=== PATIENT | male | born 1945 | race Caucasian/White ===

== ENCOUNTER 2016-11-11 13:38 | Inpatient (IN) | payer OTHER ==
[~2016-11-11] VITALS: Ht 177.8 cm; Wt 88.9 kg
[~2016-11-11 13:38] MED LIST: ALUMSUS2 PO; ASPI81TA28 PO; CARV3.12 PO; LISI-461 PO; METF-384 PO; MULT-600 PO; VICKS INH; ZCR40 PO
[2016-11-11] MEDS ORDERED: SODIUM CHLORIDE 0.9% 1000ML 500 ML IV STA (14:22)
[2016-11-11] MEDS ORDERED: SODIUM CHLORIDE 0.9% 1000ML 1,000 ML IV STA (14:22)
[2016-11-11] MEDS ORDERED: OPTIRAY 320 IV PRN (14:30)
[2016-11-11] MEDS ORDERED: OMEG10007 PO (14:58)
[2016-11-11 15:28] LABS: BASO % 0.9 %; BASO ABS # 0.04 K/uL (0-0.2); COMPLETE YES; EOS % 0.4 %; HEMATOCRIT 48.9 % (42-52); IG% 0.2 %; LYMPH % 35.6 %; LYMPH ABS # 1.63 K/uL (1.2-3.4); MEAN CELL VOLUME 91.2 fL (80-100); MEAN CORPUSCULAR HEMOGLOBIN 29.5 pg (25-34); MEAN CORPUSCULAR HGB CONC 32.3 g/dl (32-36); MEAN PLATELET VOLUME 10.2 fL (7.4-10.4); MONO % 17.7 %; NEUT % 45.2 %; PLATELET COUNT 236 K/uL (130-400); RED BLOOD COUNT 5.36 M/uL (4.7-6.1); WHITE BLOOD COUNT 4.58 K/uL (4.8-10.8)
[2016-11-11] MEDS ORDERED: OMEP40CA41 PO (15:28)
[2016-11-11] MEDS ORDERED: VALS40TA2 PO (15:28)
[2016-11-11 15:46] LABS: BUN/CREATININE RATIO 18.3 (10-20); CALCIUM 9.1 mg/dl (8.5-10.1); CREATININE 1.1 mg/dl (0.60-1.40); POTASSIUM 4.6 mmol/L (3.5-5.1)
[2016-11-11 15:49] LABS: ALB/GLOB RATIO 1.1 (0.9-2)
--- NOTE | 2016-11-11 16:16 | DIAGNOSTIC IMAGING REPORT ---
ABDOMEN 2VIEW W/PA CHEST RTN CLINICAL HISTORY: EVAL UPPER ABD PAIN pain COMPARISON STUDY: A1 2016 FINDINGS: Negative chest. Lungs are clear. Mild nonobstructive ileus. Considerable degenerative change left and to lesser extent right hip. IMPRESSION: Mild nonobstructive ileus. Electronically signed by: Saeed Pal M.D. 11/11/2016 4:15 PM Dictated Date/Time: 11/11/2016 4:14 PM
--- NOTE | 2016-11-11 17:38 | DIAGNOSTIC IMAGING REPORT ---
ABDOMEN AND PELVIS CT WITH IV AND ORAL CONTRAST CT DOSE: 517.31 mGy.cm HISTORY: Pain. Nausea. EVAL UPPER ABD PAIN TECHNIQUE: Multiaxial CT images of the abdomen and pelvis were performed following the use of intravenous and oral contrast. COMPARISON STUDY: 12/30/2015 FINDINGS: Stable bibasilar pulmonary nodularity. Lung bases otherwise are clear. Liver spleen and pancreas are uniform. Prior cholecystectomy. Mild cortical scarring of the kidneys bilaterally. No evidence renal mass or hydronephrosis. Atherosclerotic change abdominal aorta with no evidence for aneurysm. Bowel pattern is nonobstructive. Bladder is midline. No significant pelvic or inguinal adenopathy. IMPRESSION: 1. No acute process of the abdomen or pelvis. 2. Prior cholecystectomy. 3. Stable basilar pulmonary nodularity. Electronically signed by: Saeed Pal M.D. 11/11/2016 5:37 PM Dictated Date/Time: 11/11/2016 5:31 PM
--- NOTE | 2016-11-11 18:49 | EMERGENCY ROOM VISIT NOTE ---
ED Visit Note First contact with patient: 13:59 Patient seen and examined at bedside in the emergency room. Case discussed with the physician research assistant member, all labs and imaging were reviewed. Patient well- appearing at bedside, verbalized understanding of all results and need for admission. I agree with evaluation and treatment at this time.
[2016-11-11] MEDS ORDERED: LACTATED RINGER'S 1000ML 1,000 ML IV SCH (19:15)
[2016-11-11] MEDS ORDERED: ONDANSETRON INJ 2 MG/ML 2 ML VIAL IV PRN (19:15)
[2016-11-11] MEDS ORDERED: ACETAMINOPHEN 325 MG TAB PO PRN (19:15)
[2016-11-11] MEDS ORDERED: ALUMINUM/MAGNESIUM/SIMETH (MAALOX MAX) 30 ML UDC PO PRN (19:15)
[2016-11-11 19:24] VITALS: O2SAT 98
[2016-11-11] MEDS ORDERED: GLUCOSE 10 TABS/TUBE PO PRN (19:45)
[2016-11-11] MEDS ORDERED: GLUCOSE 40% GEL 15 GM TUBE PO PRN (19:45)
[2016-11-11] MEDS ORDERED: GLUCAGON FOR INJ 1 MG VIAL SQ PRN (19:45)
[2016-11-11] MEDS ORDERED: DEXTROSE 50% 50 ML SYR IV PRN (19:45)
[2016-11-11 20:15] VITALS: BP 142/83; PULSE 61; TEMP 36.8; O2SAT 95; BMI 28.1
--- NOTE | 2016-11-11 20:20 | HISTORY & PHYSICAL EXAMINATION ---
DATE OF ADMISSION: 11/11/2016 CHIEF COMPLAINT: Abdominal pain. HISTORY OF PRESENT ILLNESS: A 71-year-old male with past medical history significant for type 2 diabetes, hyperlipidemia, GERD, generalized osteoarthritis, diverticulosis of colon, chronic tobacco abuse, hypertension, proteinuria, who presents with severe abdominal pain. The patient says he has ongoing abdominal pain for about a year on and off. Whenever he eats he gets severe abdominal pain, and is nauseous. In April of 2016, seen by a surgeon, and was thought secondary to gallbladder disease, as he had gallstones and he was status post laparoscopic cholecystectomy.But Patient says he still has been experiencing significant abdominal pain. He lost about 10-15 pounds and recently saw his surgeon and was planned to get CAT scan, but his pain got worse and he came to the ER. Currently, he says the pain has improved. Currently, no nausea, no fever, no chills, no chest pain, no shortness of breath, has some cough. No headaches, no blurred vision, no dizziness, has diarrhea of 1-day duration, but seems comfortable now, hemodynamically stable. ALLERGIES: No known drug allergies. PAST MEDICAL HISTORY: As mentioned above. PAST SURGICAL HISTORY: Left heart catheterization, laparoscopic cholecystectomy, Mohs surgery, tonsillar adenoidectomy. MEDICATIONS: The patient is on metformin 1000 mg p.o. b.i.d., lisinopril 10 mg p.o. daily, omeprazole 40 mg p.o. daily, simvastatin 40 mg p.o. at bedtime, Maalox 15 mL every 6 hours p.r.n., Senokot-S 2 tablets p.r.n. for constipation, aspirin 81 mg p.o. b.i.d., Coreg 3.125 mg p.o. b.i.d., multivitamins with minerals 1 tablet daily, fish oil 200 mg p.o. daily, Diovan 40 mg p.o. daily. FAMILY HISTORY: Significant for father has diabetes, asthma, and pacemaker. His mother has renal failure and diabetes, at age of 74. Brother has asthma, degenerative joint disease. Another brother has mental illnesses and failure to thrive. Another brother has CHF. SOCIAL HISTORY: . Currently smokes to about 1.5-2 packs a day for several years. No alcohol use. No drug use. REVIEW OF SYMPTOMS: As per HPI. Rest of review of symptoms negative. PHYSICAL EXAMINATION: GENERAL: The patient is of moderate build, not in distress. VITAL SIGNS: Temperature 36.5, pulse 69, respiratory rate 16, blood pressure 137/73, oxygen 97% on room air. HEENT: No pallor, no icterus. Pupils are equal, round to light. NECK: No JVD, no neck masses, no carotid bruits. CARDIOVASCULAR: S1, S2 heard, regular rate and rhythm, no murmur, no gallop. RESPIRATORY SYSTEM: Clear to auscultation bilaterally. No accessory muscle use. No wheezing, no crackles. ABDOMEN: Soft, bowel sounds present. Mild periumbilical tenderness, no guarding, or rigidity. No distention. CENTRAL NERVOUS SYSTEM: Cranial nerves II-XII are grossly intact. Nonfocal. EXTREMITIES: No edema, no erythema. LABORATORY DATA: WBC 4.5, hemoglobin 15.8, hematocrit 48.9, platelets 236. Sodium 139, potassium 4.6, chloride 107, bicarb is 26, BUN 20, creatinine 1.1, serum glucose 93, total calcium 9.1, total bilirubin 1.2, AST 16, ALT 26, alkaline phosphatase 78, lipase 2100. IMAGING DATA: Chest x-ray, negative chest. CT scan of the abdomen and pelvis, no acute process of the abdomen and pelvis, prior cholecystectomy, stable bibasilar pulmonary nodularity. ASSESSMENT AND PLAN: This is a 71-year-old male who presents with acute on chronic abdominal pain. 1. Acute on chronic abdominal pain. Possible pancreatitis, history of cholecystectomy in April 2016, but lipase is elevated at 2000, but the CAT scan of the pelvis with contrast, no acute process seen. We will place the patient n.p.o., aggressive IV fluids settling at LR 200 mL an hour, IV antiemetics, IV pain medications. Monitor on medical floor. Consult gastroenterology and consult surgery as patient is known to surgery. 2. History of diabetes. Hold metformin. We will place him on insulin sliding scale. Follow Hb A1c levels. 3. History of hypertension. Continue Coreg and Diovan. Monitor the blood pressure. 4. History of hyperlipidemia. Plan to hold statin for now. 5. Gastrointestinal reflux disease. We will place him on IV Protonix for now. 6. DVT prophylaxis, SCDs and THOMPSON. 7. History of tobacco abuse. We will place him on nicotine patch. 8. Disposition: Admit to medical floor. Level 1 full code. MTDNkechi
[2016-11-11] MEDS ORDERED: PNEUMOCOCCAL POLYSACCHARIDES 25 MCG/0.5 ML VIAL/SYR IM. ONE (20:45)
[2016-11-11] MEDS ORDERED: PNEUMOCOCCAL ADMINISTRATION CHARGE ONE (20:45)
[2016-11-11] MEDS: CARVEDILOL 3.125 MG TAB PO SCH (21:00)
[2016-11-11] MEDS: INSULIN ASPART 100 UNITS/ML 3 ML PEN SC SCH ×3 (21:19→21:27)
[2016-11-11] MEDS: MoRPHine SULFATE 4 MG/ML 1 ML CARP\\VIAL IV PRN (21:23)
[2016-11-11 21:29] VITALS: BP 106/66; PULSE 58
--- NOTE | 2016-11-11 22:25 | EMERGENCY ROOM VISIT NOTE ---
History First contact with patient: 13:59 Chief Complaint: ABDOMINAL PAIN Stated Complaint: ABD. PAIN-GALL BLADDER REMOVED FEBMar 2016 Nursing Triage Summary: pt reports pain in RUQ states gallbladder was removed 6 months ago feels like same pain History of Present Illness Patient is a 71 year old white male with past medical history significant for hypertension, dyslipidemia, diabetes, GERD, and 6 months status post lap Cholecystectomy who presents emergency department for evaluation of upper abdominal pain 4 months. Patient had an uncomplicated laparoscopic cholecystectomy performed at our facility by Dr. Harley in April 2016 for symptomatic cholelithiasis. Patient reports that postoperatively his symptoms improved. Several months ago however he began to note some intermittent right upper quadrant pain. He describes it as feeling like a "gas bubble." He states the pain radiates across the upper abdomen to the left upper quadrant. Initially the pain was tolerable, however in the last couple of weeks it has become worse. He states that it is more constant. He feels bloated and distended and notes increased flatus. He denies any nausea or vomiting. The pain is worse after eating, although he denies any specific food triggers. He denies any indigestion, reflux symptoms or regurgitation. He has been constipated as well. He has used multiple medications including MiraLAX and Maalox and was placed on Carafate which she has been on for 1-2 months. He is not presently on a PPI. Last night, he was driving back from [place], and he noted increased pain, fatigue, and actually had diarrhea. He denies any melena, or hematochezia. The patient was seen by his surgeon, Dr. Harley last week on the . He had laboratory studies performed which were unremarkable per the patient. A CT scan was scheduled but could not be arranged until the . The patient reports a history of an EGD and a colonoscopy in the past which were negative. He denies any pain in his chest, cough, wheezing or shortness of breath. He does have some intermittent palpitations, which have been evaluated and are reportedly benign. He did have a cardiac catheterization last fall while experiencing his biliary colic symptoms, and was cleared from a cardiology standpoint. He denies a calf or leg pain or swelling. He smokes 2 packs of cigarettes per day. He drinks excessive caffeinated beverages. Denies alcohol use. Review of Systems Review of systems as per HPI. All other systems reviewed were negative. 10 systems reviewed. Past Medical/Surgical History Medical Problems: (1) Cholelithiasis (2) Chronic pancreatitis (3) Diabetes (4) Essential (Primary) Hypertension (5) Gastro-Esophageal Reflux Disease Without Esophagitis (6) High cholesterol (7) Lung nodule (8) Pancreatitis (9) Skin cancer (10) Type 2 Diabetes Mellitus Without Complications Surgical Problems: (1) History of colonoscopy (2) History of esophagogastroduodenoscopy (3) Hx laparoscopic cholecystectomy (4) Status post excisional biopsy Electronic medical records are reviewed and summarized as above/below. See Problem List. Social History Smoking Status: Current Every Day Smoker Alcohol Use: none Marital Status: Housing Status: lives with significant other Occupation Status: employed Current/Historical Medications Scheduled Aluminum/Magnesium/Simeth (Maalox Max Susp), 1 DOSE PO PRN Aspirin (Aspirin Ec), 81 MG PO BID Carvedilol (Coreg), 3.125 MG PO BID Fish Oil ([place]-3), 1 CAP PO DAILY Metformin Hcl (Glucophage), 1,000 MG PO BID Multiple Vitamins W/ Minerals (Mens Multi Vitamin & Mine), 2 TAB PO QPM Omeprazole (Prilosec), 40 MG PO DAILY Simvastatin (Simvastatin), 40 MG PO QPM Valsartan (Diovan), 40 MG PO DAILY [Vicks Inhaler], 1 DOSE INH PRN Allergies Coded Allergies: No Known Allergies (Unverified , 11/11/16) Physical Exam Vital Signs Date Time Temp Pulse Resp B/P (MAP) Pulse Ox O2 Delivery O2 Flow Rate FiO2 11/11/16 17:37 69 16 137/73 97 Room Air 11/11/16 15:34 60 18 117/64 94 Room Air 11/11/16 13:44 36.5 81 18 116/73 96 Room Air Physical Exam CONSTITUTIONAL: Patient is a 71-year-old white male who is awake and alert and in no acute distress. Vital signs are stable. EYES: Pupils equal, round, reactive to light and accommodation. EOMs intact without nystagmus. Sclera are anicteric. ENT: Tympanic membranes intact, with normal landmarks. External canals are clear. Oral and nasopharynx are clear. Mucous membranes are moist, no lesions , tongue and gums appear normal. NECK: No bruits auscultated. Supple without lymphadenopathy. No thyromegaly. No meningeal signs. Full active range of motion without discomfort. CARDIOVASCULAR: Regular rate and rhythm, with normal S1 and S2, no murmur or gallop or rub is heard. No carotid bruits auscultated. No JVD. Peripheral pulses easy to palpable. RESPIRATORY: Breath sounds equal and clear to auscultation without wheezes, rales, or rhonchi heard. Full and equal chest expansion without accessory muscle use or retractions. GI: Bowel sounds are present. Abdomen is soft, nondistended, slightly tender in the right upper quadrant and epigastric region. No organomegaly. No pulsatile masses. No guarding or rebound. MUSCULOSKELETAL: Full range of motion of extremities x 4 with good strength. No cyanosis, edema, joint tenderness or swelling. No deformity. INTEGUMENTARY: No lesions or rash, normal skin turgor. NEUROLOGICAL: Alert, oriented, and cooperative. Cranial nerves, sensation and strength grossly intact. Pupils round, equal, and react to light, EOMs are full. LYMPH: No lymphadenopathy. Medical Decision & Procedures ER Provider Diagnostic Interpretation: ABDOMEN 2VIEW W/PA CHEST RTN CLINICAL HISTORY: EVAL UPPER ABD PAIN pain COMPARISON STUDY: A1 2015 FINDINGS: Negative chest. Lungs are clear. Mild nonobstructive ileus. Considerable degenerative change left and to lesser extent right hip. IMPRESSION: Mild nonobstructive ileus. ABDOMEN AND PELVIS CT WITH IV AND ORAL CONTRAST CT DOSE: 517.31 mGy.cm HISTORY: Pain. Nausea. EVAL UPPER ABD PAIN TECHNIQUE: Multiaxial CT images of the abdomen and pelvis were performed following the use of intravenous and oral contrast. COMPARISON STUDY: 12/30/2015 FINDINGS: Stable bibasilar pulmonary nodularity. Lung bases otherwise are clear. Liver spleen and pancreas are uniform. Prior cholecystectomy. Mild cortical scarring of the kidneys bilaterally. No evidence renal mass or hydronephrosis. Atherosclerotic change abdominal aorta with no evidence for aneurysm. Bowel pattern is nonobstructive. Bladder is midline. No significant pelvic or inguinal adenopathy. IMPRESSION: 1. No acute process of the abdomen or pelvis. 2. Prior cholecystectomy. 3. Stable basilar pulmonary nodularity. Laboratory Results 11/11/16 15:15 Red Blood Count 5.36, Mean Corpuscular Volume 91.2, Mean Corpuscular Hemoglobin 29.5, Mean Corpuscular Hemoglobin Concent 32.3, Mean Platelet Volume 10.2, Neutrophils (%) (Auto) 45.2, Lymphocytes (%) (Auto) 35.6, Monocytes (%) (Auto) 17.7, Eosinophils (%) (Auto) 0.4, Basophils (%) (Auto) 0.9, Neutrophils # (Auto ) 2.07, Lymphocytes # (Auto) 1.63, Monocytes # (Auto) 0.81, Eosinophils # (Auto ) 0.02, Basophils # (Auto) 0.04 11/11/16 15:15 Test 11/11/16 15:15 White Blood Count 4.58 K/uL (4.8-10.8) Red Blood Count 5.36 M/uL (4.7-6.1) Hemoglobin 15.8 g/dL (14.0-18.0) Hematocrit 48.9 % (42-52) Mean Corpuscular Volume 91.2 fL (80-100) Mean Corpuscular Hemoglobin 29.5 pg (25-34) Mean Corpuscular Hemoglobin Concent 32.3 g/dl (32-36) Platelet Count 236 K/uL (130-400) Mean Platelet Volume 10.2 fL (7.4-10.4) Neutrophils (%) (Auto) 45.2 % Lymphocytes (%) (Auto) 35.6 % Monocytes (%) (Auto) 17.7 % Eosinophils (%) (Auto) 0.4 % Basophils (%) (Auto) 0.9 % Neutrophils # (Auto) 2.07 K/uL (1.4-6.5) Lymphocytes # (Auto) 1.63 K/uL (1.2-3.4) Monocytes # (Auto) 0.81 K/uL (0.11-0.59) Eosinophils # (Auto) 0.02 K/uL (0-0.5) Basophils # (Auto) 0.04 K/uL (0-0.2) RDW Standard Deviation 52.6 fL (36.4-46.3) RDW Coefficient of Variation 15.7 % (11.5-14.5) Immature Granulocyte % (Auto) 0.2 % Immature Granulocyte # (Auto) 0.01 K/uL (0.00-0.02) Anion Gap 6.0 mmol/L (3-11) Est Creatinine Clear Calc Drug Dose 70.1 ml/min Estimated GFR () 78.4 Estimated GFR (Non- 67.7 BUN/Creatinine Ratio 18.3 (10-20) Calcium Level 9.1 mg/dl (8.5-10.1) Total Bilirubin 1.2 mg/dl (0.2-1) Aspartate Amino Transf (AST/SGOT) 16 U/L (15-37) Alanine Aminotransferase (ALT/SGPT) 26 U/L (12-78) Alkaline Phosphatase 78 U/L (45-117) Total Protein 7.8 gm/dl (6.4-8.2) Albumin 4.0 gm/dl (3.4-5.0) Globulin 3.8 gm/dl (2.5-4.0) Albumin/Globulin Ratio 1.1 (0.9-2) Lipase 2101 U/L (73-393) Medications Administered Medications (Trade) Dose Ordered Sig/Nadia Route Start Time Stop Time Status Last Admin Dose Admin Sodium Chloride 500 ml @ 999 mls/hr Q31M STAT IV 11/11/16 14:22 11/11/16 14:52 DC 11/11/16 14:22 999 MLS/HR Sodium Chloride 1,000 ml @ 200 mls/hr Q5H STAT IV 11/11/16 14:22 11/11/16 19:21 DC 11/11/16 14:22 200 MLS/HR Lactated Ringer's 1,000 ml @ 200 mls/hr Q5H IV 11/11/16 19:15 12/11/16 19:14 11/11/16 21:19 200 MLS/HR Morphine Sulfate (MoRPHine SULFATE INJ) 3 mg Q3HWA PRN IV 11/11/16 19:15 11/25/16 19:14 11/11/16 21:23 3 MG ED Course The patient was seen and evaluated as above. Old records were reviewed. IV lock was initiated and laboratory studies were collected. And lipase were drawn. Patient was hydrated with normal saline solution. He declined analgesia while in the emergency department. Acute abdominal series was obtained. CT scan of the abdomen and pelvis with IV and oral contrast was ordered. Laboratory studies noted a white count of 4500, H&H 15 and 48, electrolytes without significant abnormality. Renal function is normal. Total bilirubin 1.2 , otherwise remainder of liver functions are within normal limits. Lipase is elevated at 2100. Urine dip noted trace protein and positive nitrates, no other indicators for infection. Acute abdominal series noted a mild, nonobstructive ileus. Abdominal CT did not note any acute process in the abdomen or the pelvis. Prior changes consistent with cholecystectomy were noted. Stable pulmonary nodule. All laboratory and diagnostic imaging studies were reviewed with attending physician. He presents to the emergency department with a several month history of upper abdominal pain, status post cholecystectomy. His abdominal exam is benign at this time, however he does have elevation of his lipase indicative of pancreatitis. Review of old records do show that his lipase had been up at only around 900 at the time of his cholecystectomy. Differential diagnoses entertained included GERD, gastritis, esophagitis, peptic ulcer disease, GI bleed, pancreatitis, choledocholithiasis, ascending cholangitis, bowel obstruction, perforation, mass or malignancy, among others. The patient was reviewed with the [facility] service for further care and management. Please refer to admission H&P for further information. Medication reconciliation: I attest that I have personally reviewed the patient' s current medication list. Blood pressure screening : Patient was found to have normal blood pressure on screening and does not require follow-up. Medical Decision See Emergency Department course. Impression Primary Impression: Pancreatitis Departure Information Dispostion Being Evaluated By Hospitalist Referrals Eddie Ray D.O. (PCP) Patient Instructions [facility]
[2016-11-11 23:14] VITALS: BP 101/57; PULSE 75; TEMP 36.7; O2SAT 91
[2016-11-12] MEDS: D5W AND LACTATED RINGERS 1,000 ML IV SCH ×5 (00:55→20:08)
[2016-11-12] MEDS: INSULIN ASPART 100 UNITS/ML 3 ML PEN SC SCH ×4 (05:51→18:29)
[2016-11-12 07:44] LABS: BASO % 0.9 %; BASO ABS # 0.03 K/uL (0-0.2); COMPLETE YES; EOS % 0.6 %; HEMATOCRIT 45.5 % (42-52); IG% 0.3 %; LYMPH % 38.1 %; LYMPH ABS # 1.21 K/uL (1.2-3.4); MEAN CELL VOLUME 92.1 fL (80-100); MEAN CORPUSCULAR HEMOGLOBIN 29.4 pg (25-34); MEAN CORPUSCULAR HGB CONC 31.9 g/dl (32-36); MEAN PLATELET VOLUME 10.3 fL (7.4-10.4); MONO % 19.5 %; NEUT % 40.6 %; PLATELET COUNT 217 K/uL (130-400); RED BLOOD COUNT 4.94 M/uL (4.7-6.1); WHITE BLOOD COUNT 3.18 K/uL (4.8-10.8)
[2016-11-12 07:49] VITALS: BP 132/79; PULSE 63; TEMP 36.7; O2SAT 93
[2016-11-12] MEDS: MoRPHine SULFATE 4 MG/ML 1 ML CARP\\VIAL IV PRN ×2 (07:53→15:07)
[2016-11-12 08:21] LABS: BUN/CREATININE RATIO 14.8 (10-20); CREATININE 0.95 mg/dl (0.60-1.40)
[2016-11-12 08:25] LABS: CALCIUM 8.4 mg/dl (8.5-10.1)
[2016-11-12 08:34] LABS: ESTIMATED AVERAGE GLUCOSE 123 mg/dl; HA1C FLAG Normal (Normal)
--- NOTE | 2016-11-12 08:59 | Medical Consult ---
Consultation Date of Consultation: Nov 12, 2016. Attending Physician: Anne-Marie Brunson M.D. History of Present Illness 71 y/o male 6 months s/p lap abhilash admitted for abdominal pain. He saw Dr. Harley last week and CT was scheduled. He had increased pain yesterday and came to the ED and was subsequently admitted for pancreatitis. Pain (across upper abdomen) is improved this AM. He had seen GI preop but not since surgery. Pathology was cholelithiasis, chronic cholecystitis. IOC was not obtained. Past Medical/Surgical History Medical Problems: (1) Cholelithiasis (2) Chronic pancreatitis (3) Diabetes (4) Essential (Primary) Hypertension (5) Gastro-Esophageal Reflux Disease Without Esophagitis (6) High cholesterol (7) Lung nodule (8) Pancreatitis (9) Skin cancer (10) Type 2 Diabetes Mellitus Without Complications Surgical Problems: (1) History of colonoscopy (2) History of esophagogastroduodenoscopy (3) Hx laparoscopic cholecystectomy (4) Status post excisional biopsy Social History Smoking Status: Current Every Day Smoker Marital Status: Housing Status: lives with significant other Occupation Status: employed Allergies Coded Allergies: No Known Allergies (Unverified , 11/11/16) Current Inpatient Medications Current Inpatient Medications Medications (Trade) Dose Ordered Sig/Nadia Route Start Time Stop Time Status Last Admin Dose Admin Ioversol (Optiray 320) 125 ml UD PRN IV 11/11/16 14:30 11/15/16 14:29 Acetaminophen (Tylenol Tab) 650 mg Q4H PRN PO 11/11/16 19:15 12/11/16 19:14 Al Hydrox/Mg Hydrox/Simethicone (Maalox Max Susp) 15 ml Q4H PRN PO 11/11/16 19:15 12/11/16 19:14 Ondansetron HCl (Zofran Inj) 4 mg Q6H PRN IV 11/11/16 19:15 12/11/16 19:14 Pantoprazole Sodium 40 mg/ Syringe 10 ml @ 5 mls/min DAILY@11 IV 11/12/16 11:00 12/12/16 10:59 Morphine Sulfate (MoRPHine SULFATE INJ) 3 mg Q3HWA PRN IV 11/11/16 19:15 11/25/16 19:14 11/12/16 07:53 3 MG Carvedilol (Coreg Tab) 3.125 mg BID PO 11/11/16 21:00 12/11/16 20:59 Valsartan (Diovan Tab) 40 mg DAILY PO 11/12/16 09:00 12/12/16 08:59 Insulin Aspart (novoLOG ASPART) SLIDING SCALE G... Q6 SC 11/11/16 00:00 12/11/16 00:00 Nicotine (Nicoderm Cq 21MG Patch) 1 patch QAM TD 11/12/16 09:00 12/12/16 08:59 Miscellaneous (Remove Nicoderm Patch) 1 ea HS N/A 11/11/16 21:00 12/11/16 20:59 11/11/16 21:00 1 EA Glucose (Glucose 40% Gel) 15-30 GRAMS 15 GRAMS... UD PRN PO 11/11/16 19:45 12/11/16 19:44 Glucose (Glucose Chew Tab) 4-8 Tablets 4 Tabl... UD PRN PO 11/11/16 19:45 12/11/16 19:44 Dextrose (Dextrose 50% 50ML Syringe) 25-50ML OF 50% DW IV FOR... UD PRN IV 11/11/16 19:45 12/11/16 19:44 Glucagon (Glucagon Inj) 1 mg UD PRN SQ 11/11/16 19:45 12/11/16 19:44 Dextrose/Lactated Ringer's 1,000 ml @ 200 mls/hr Q5H IV 11/12/16 00:30 12/12/16 00:29 11/12/16 05:50 200 MLS/HR Review of Systems Abdomen: + pain (after meals), No vomiting Physical Exam Date Time Temp Pulse Resp B/P (MAP) Pulse Ox O2 Delivery O2 Flow Rate FiO2 11/12/16 07:49 36.7 63 16 132/79 (96) 93 Room Air 11/12/16 07:40 Room Air 11/12/16 00:14 Room Air 11/11/16 23:14 36.7 75 14 101/57 (72) 91 Room Air 11/11/16 21:29 58 106/66 (79) 11/11/16 20:15 36.8 61 16 142/83 Room Air 11/11/16 20:15 36.8 61 16 142/83 (102) 95 Room Air 11/11/16 19:24 58 18 129/75 98 Room Air 11/11/16 17:37 69 16 137/73 97 Room Air 11/11/16 15:34 60 18 117/64 94 Room Air 11/11/16 13:44 36.5 81 18 116/73 96 Room Air General Appearance: no apparent distress ENT: normal ENT inspection Abdomen/GI: non tender, soft Laboratory Results Last 24 Hours Test 11/11/16 15:15 11/12/16 00:02 11/12/16 05:49 11/12/16 07:28 White Blood Count 4.58 K/uL 3.18 K/uL Red Blood Count 5.36 M/uL 4.94 M/uL Hemoglobin 15.8 g/dL 14.5 g/dL Hematocrit 48.9 % 45.5 % Mean Corpuscular Volume 91.2 fL 92.1 fL Mean Corpuscular Hemoglobin 29.5 pg 29.4 pg Mean Corpuscular Hemoglobin Concent 32.3 g/dl 31.9 g/dl Platelet Count 236 K/uL 217 K/uL Mean Platelet Volume 10.2 fL 10.3 fL Neutrophils (%) (Auto) 45.2 % 40.6 % Lymphocytes (%) (Auto) 35.6 % 38.1 % Monocytes (%) (Auto) 17.7 % 19.5 % Eosinophils (%) (Auto) 0.4 % 0.6 % Basophils (%) (Auto) 0.9 % 0.9 % Neutrophils # (Auto) 2.07 K/uL 1.29 K/uL Lymphocytes # (Auto) 1.63 K/uL 1.21 K/uL Monocytes # (Auto) 0.81 K/uL 0.62 K/uL Eosinophils # (Auto) 0.02 K/uL 0.02 K/uL Basophils # (Auto) 0.04 K/uL 0.03 K/uL RDW Standard Deviation 52.6 fL 52.8 fL RDW Coefficient of Variation 15.7 % 15.6 % Immature Granulocyte % (Auto) 0.2 % 0.3 % Immature Granulocyte # (Auto) 0.01 K/uL 0.01 K/uL Sodium Level 139 mmol/L 142 mmol/L Potassium Level 4.6 mmol/L 4.0 mmol/L Chloride Level 107 mmol/L 109 mmol/L Carbon Dioxide Level 26 mmol/L 27 mmol/L Anion Gap 6.0 mmol/L 6.0 mmol/L Blood Urea Nitrogen 20 mg/dl 14 mg/dl Creatinine 1.10 mg/dl 0.95 mg/dl Est Creatinine Clear Calc Drug Dose 70.1 ml/min 81.2 ml/min Estimated GFR () 78.4 93.6 Estimated GFR (Non- 67.7 80.8 BUN/Creatinine Ratio 18.3 14.8 Random Glucose 93 mg/dl 131 mg/dl Calcium Level 9.1 mg/dl 8.4 mg/dl Total Bilirubin 1.2 mg/dl 1.2 mg/dl Aspartate Amino Transf (AST/SGOT) 16 U/L 14 U/L Alanine Aminotransferase (ALT/SGPT) 26 U/L 21 U/L Alkaline Phosphatase 78 U/L 65 U/L Total Protein 7.8 gm/dl 6.6 gm/dl Albumin 4.0 gm/dl 3.3 gm/dl Globulin 3.8 gm/dl Albumin/Globulin Ratio 1.1 Lipase 2101 U/L Bedside Glucose 87 mg/dl 137 mg/dl Estimated Average Glucose 123 mg/dl Hemoglobin A1c 5.9 % Magnesium Level 2.0 mg/dl Direct Bilirubin 0.3 mg/dl ABDOMEN AND PELVIS CT WITH IV AND ORAL CONTRAST CT DOSE: 517.31 mGy.cm HISTORY: Pain. Nausea. EVAL UPPER ABD PAIN TECHNIQUE: Multiaxial CT images of the abdomen and pelvis were performed following the use of intravenous and oral contrast. COMPARISON STUDY: 12/30/2015 FINDINGS: Stable bibasilar pulmonary nodularity. Lung bases otherwise are clear. Liver spleen and pancreas are uniform. Prior cholecystectomy. Mild cortical scarring of the kidneys bilaterally. No evidence renal mass or hydronephrosis. Atherosclerotic change abdominal aorta with no evidence for aneurysm. Bowel pattern is nonobstructive. Bladder is midline. No significant pelvic or inguinal adenopathy. IMPRESSION: 1. No acute process of the abdomen or pelvis. 2. Prior cholecystectomy. 3. Stable basilar pulmonary nodularity. Electronically signed by: Saeed Pal M.D. 11/11/2016 5:37 PM Dictated Date/Time: 11/11/2016 5:31 PM Assessment & Plan pancreatitis Continue treatment for his acute pancreatitis. Will leave further evaluation (inpatient/outpatient) up to GI. Will inform Dr. Harley of admission, but no acute surgical issues at this time. Please contact us if his conditions changes. pt seen. as above. appears to be acute on chronic pancreatitis ct neg/no surgical indication at this time GI to eval via ercp/eus please call us if we can help in any way.
--- NOTE | 2016-11-12 09:04 | Gastrointestinal Consultation ---
Gastrointestinal Consultation Date of Consultation: Nov 12, 2016 Attending Physician: Dr. Brunson Consulting Physician: Dr. Azam Pinto Reason for Consultation: ? pancreatitis History of Present Illness Patient is a 71 year old male patient Eddie Ray with a hx of DM-2, HTN, GERD, diverticulosis who presented to the ED yesterday for upper post prandial pain. GI is consulted for question of pancreatitis. He began with upper abdomen pain after eating a few years ago. In April, he underwent lap choley by Dr. Harley with brief improvement in his pain. He describes his pain prior cholecystectomy was RUQ, after eating and "a dull throb." He felt well until about late April when this pain started which he describes as bilateral upper abdomen pain, equal on both side, beginning immediately after eating and lasting 2-3 hrs. Maalox improves the pain. He saw GI as well has his surgeon recently but he doesn't believe that he has undergone endoscopy or EUS. He does not get nausea, vomiting or diarrhea with the pain. On arrival, lipase was >2000, CT with IV and po contrast were normal. LFTs were normal (except bilirubin of 1.2). He is awake, alert, oriented and sitting up in the bed. He says his pain is better today compared to yesterday. He denies any hx of increased alcohol intake though he does drink a 6 pack of diet Mountain Dew every day. He smokes 1 1/2 ppd for 53 yrs. Past Medical/Surgical History Medical Problems: (1) Diabetes Status: Chronic (2) High cholesterol Status: Chronic (3) Lung nodule Status: Chronic Past Medical History: 1. HTN 2. GERD 3. Arthritis 4. Diverticulosis 5. Proteinuria Past Surgical History: 1. Lap cholecystectomy Feb 2016 2. MOEs surgery on nose, right shoulder 3. Heart Cath Social History Smoking Status: Current Every Day Smoker Alcohol Use: none Marital Status: Housing Status: lives with significant other Occupation Status: employed Allergies Coded Allergies: No Known Allergies (Unverified , 11/11/16) Current Medications Home Meds and Scripts Medications Dose Route/Sig Max Daily Dose Days Date Category Diovan (Valsartan) 40 Mg Tab 40 Mg PO DAILY 11/11/16 Reported Prilosec (Omeprazole) 40 Mg Cap 40 Mg PO DAILY 11/11/16 Reported Jeannette-3 (Fish Oil) 1 Ea Cap 1 Cap PO DAILY 11/11/16 Reported Maalox Max Susp (Al Hydrox/Mg Hydrox/Simethicone) Susp 1 Dose PO PRN 04/20/16 Reported [Vicks Inhaler] 1 Dose INH PRN 04/20/16 Reported Coreg (Carvedilol) 3.125 Mg Tab 3.125 Mg PO BID 04/20/16 Reported Aspirin Ec (Aspirin) 81 Mg Tab 81 Mg PO BID 04/20/16 Reported Mens Multi Vitamin & Mine (Multiple Vitamins W/ Minerals) 1 Tab Tab 2 Tab PO QPM 12/30/15 Reported Glucophage (Metformin Hcl) 1,000 Mg Tab 1,000 Mg PO BID 12/30/15 Reported Simvastatin 40 Mg Tab 40 Mg PO QPM 12/30/15 Reported Review of Systems Constitutional: No fever, No chills, No sweats, No weight loss, No weakness Eyes: No eye pain, No redness ENT: No sore throat, No trouble swallowing, No pain on swallowing Respiratory: No cough, No wheezing, No shortness of breath, No dyspnea on exertion Cardiac: No chest pain, No edema, No palpitations Abdomen: + see HPI Musculoskeletal: + joint pain (with arthritis) Neuro: No memory loss, No weakness, No numbness/tingling, No vertigo, No balance problems Psych: No depression symptoms, No anxiety, No insomnia Heme: No abnormal bleeding/bruising, No night sweats Endo: No excessive thirst, No excessive urination Skin: No rash, No itch, No new/changing skin lesions, No jaundice Physical Exam Date Time Temp Pulse Resp B/P (MAP) Pulse Ox O2 Delivery O2 Flow Rate FiO2 11/12/16 07:49 36.7 63 16 132/79 (96) 93 Room Air 11/12/16 07:40 Room Air 11/12/16 00:14 Room Air 11/11/16 23:14 36.7 75 14 101/57 (72) 91 Room Air 11/11/16 21:29 58 106/66 (79) 11/11/16 20:15 36.8 61 16 142/83 Room Air 11/11/16 20:15 36.8 61 16 142/83 (102) 95 Room Air 11/11/16 19:24 58 18 129/75 98 Room Air 11/11/16 17:37 69 16 137/73 97 Room Air 11/11/16 15:34 60 18 117/64 94 Room Air 11/11/16 13:44 36.5 81 18 116/73 96 Room Air General Appearance: no apparent distress Eyes: normal inspection, EOMI Neck: supple, no adenopathy, thyroid normal Respiratory/Chest: chest non-tender, no accessory muscle use, + wheezing (mild , throughout) Cardiovascular: regular rate, rhythm, no JVD, no murmur Abdomen: normal bowel sounds, no organomegaly, + tenderness (mild RUQ tenderness) Extremities: normal inspection, no pedal edema, normal capillary refill Neurologic/Psych: alert, normal mood/affect, oriented x 3 Skin: normal color, no jaundice, warm/dry, no rash Laboratory Results Last 24 Hours Test 11/11/16 15:15 11/12/16 00:02 11/12/16 05:49 11/12/16 07:28 White Blood Count 4.58 K/uL 3.18 K/uL Red Blood Count 5.36 M/uL 4.94 M/uL Hemoglobin 15.8 g/dL 14.5 g/dL Hematocrit 48.9 % 45.5 % Mean Corpuscular Volume 91.2 fL 92.1 fL Mean Corpuscular Hemoglobin 29.5 pg 29.4 pg Mean Corpuscular Hemoglobin Concent 32.3 g/dl 31.9 g/dl Platelet Count 236 K/uL 217 K/uL Mean Platelet Volume 10.2 fL 10.3 fL Neutrophils (%) (Auto) 45.2 % 40.6 % Lymphocytes (%) (Auto) 35.6 % 38.1 % Monocytes (%) (Auto) 17.7 % 19.5 % Eosinophils (%) (Auto) 0.4 % 0.6 % Basophils (%) (Auto) 0.9 % 0.9 % Neutrophils # (Auto) 2.07 K/uL 1.29 K/uL Lymphocytes # (Auto) 1.63 K/uL 1.21 K/uL Monocytes # (Auto) 0.81 K/uL 0.62 K/uL Eosinophils # (Auto) 0.02 K/uL 0.02 K/uL Basophils # (Auto) 0.04 K/uL 0.03 K/uL RDW Standard Deviation 52.6 fL 52.8 fL RDW Coefficient of Variation 15.7 % 15.6 % Immature Granulocyte % (Auto) 0.2 % 0.3 % Immature Granulocyte # (Auto) 0.01 K/uL 0.01 K/uL Sodium Level 139 mmol/L 142 mmol/L Potassium Level 4.6 mmol/L 4.0 mmol/L Chloride Level 107 mmol/L 109 mmol/L Carbon Dioxide Level 26 mmol/L 27 mmol/L Anion Gap 6.0 mmol/L 6.0 mmol/L Blood Urea Nitrogen 20 mg/dl 14 mg/dl Creatinine 1.10 mg/dl 0.95 mg/dl Est Creatinine Clear Calc Drug Dose 70.1 ml/min 81.2 ml/min Estimated GFR () 78.4 93.6 Estimated GFR (Non- 67.7 80.8 BUN/Creatinine Ratio 18.3 14.8 Random Glucose 93 mg/dl 131 mg/dl Calcium Level 9.1 mg/dl 8.4 mg/dl Total Bilirubin 1.2 mg/dl 1.2 mg/dl Aspartate Amino Transf (AST/SGOT) 16 U/L 14 U/L Alanine Aminotransferase (ALT/SGPT) 26 U/L 21 U/L Alkaline Phosphatase 78 U/L 65 U/L Total Protein 7.8 gm/dl 6.6 gm/dl Albumin 4.0 gm/dl 3.3 gm/dl Globulin 3.8 gm/dl Albumin/Globulin Ratio 1.1 Lipase 2101 U/L Bedside Glucose 87 mg/dl 137 mg/dl Estimated Average Glucose 123 mg/dl Hemoglobin A1c 5.9 % Magnesium Level 2.0 mg/dl Direct Bilirubin 0.3 mg/dl Impression Patient is a 71 year old male with acute on chronic post prandial upper abdomen pain in a band like distribution. His lipase is >[address] is normal. Symptoms are suggestive of a chronic, low grade pancreatitis or chronic abdominal vascular occlusion. Plan 1. Treat acute symptoms with IV fluids, clear liquids po. 2. MRCP. If CBD obstruction then will consider ERCP. 3. If ERCP negative then eventual EUS. 4. If EUS w/o evidence of pancreatitis then would consider CTA abd/pelvis. 6. Consider smoking cessation and decreased soda intake. I saw and evaluated the patient. He was admitted with recurrent abdominal pain and mild lipase elevation, 6 months post cholecytectomy. PE: nad, no icterus Impression: mild idiopathic pancreatitis, please obtain an MRCP to evaluate for retained CBD stones Plan MRCP continue with IV hydration
[2016-11-12] MEDS: VALSARTAN 80 MG TAB PO SCH (10:13)
[2016-11-12] MEDS: CARVEDILOL 3.125 MG TAB PO SCH ×2 (10:13→20:19)
[2016-11-12] MEDS: NICOTINE 21 MG/24 HR TDSY TD SCH (10:14)
[2016-11-12] MEDS: PANTOprazole INJ 40 MG in SYRINGE 0 ML IV SCH (10:14)
[2016-11-12 12:53] VITALS: Ht 177.8 cm; Wt 88.9 kg
--- NOTE | 2016-11-12 15:04 | DIAGNOSTIC IMAGING REPORT ---
MRCP CLINICAL HISTORY: EVAL FOR RETAINED GALLSTONES pain. Nausea. TECHNIQUE: Multiaxial MRI acquisition COMPARISON STUDY: CT abdomen and pelvis dated 11/11/2016 FINDINGS: Mild fatty infiltration of liver. Prior cholecystectomy. Several very small renal cysts. No evidence renal hydronephrosis. The adrenal glands are unremarkable. Pancreas is uniform throughout. Bowel pattern is nonobstructive. The MRCP comparison study shows no retained filling defects. IMPRESSION: Negative study status post cholecystectomy Electronically signed by: Saeed Pal M.D. 11/12/2016 3:03 PM Dictated Date/Time: 11/12/2016 2:58 PM
--- NOTE | 2016-11-12 15:09 | Progress Note ---
Internal Med Progress Note Date of Service: Nov 12, 2016. Provider Documentation: SUBJECTIVE: The patient was seen and examined Abdominal pain is much better today Denies any Nausea and or vomiting Pain gets worse with food OBJECTIVE: Vital Signs-as noted below Exam: General-No distress at rest Eyes-normal ENT-normal Neck-supple Lungs-Clear to auscultate bilaterally Heart-Regular,no murmur appreciated Abdomen-Benign,no masses,bowel sound present No tenderness in epigastrium Extremities-No Edema [id number] Lab data as noted below. ASSESSMENT & PLAN: ACUTE RECURRENT PANCREATITIS Acute on chronic abdominal pain-typical for Pancreatitis. Lipase elevated ~2000 CT-unremarkable IVF,NPO and symptomatic medications GI consulted-appreciate Input MRCP for further evaluation Clinically a little better Diabetes Type II Metformin may be complicating abdominal pain Hold metformin-and will discontinue on discharge We will place him on insulin sliding scale. Follow Hb A1c levels. History of hypertension. Continue Coreg and Diovan. Monitor the blood pressure. Hyperlipidemia. Plan to hold statin for now. Gastrointestinal reflux disease. We will place him on IV Protonix for now. DVT prophylaxis, SCDs and THOMPSON. History of tobacco abuse. We will place him on nicotine patch. Code Status-Full code Disposition: Awaited Vital Signs: Date Time Temp Pulse Resp B/P (MAP) Pulse Ox O2 Delivery O2 Flow Rate FiO2 11/12/16 07:49 36.7 63 16 132/79 (96) 93 Room Air 11/12/16 07:40 Room Air 11/12/16 00:14 Room Air 11/11/16 23:14 36.7 75 14 101/57 (72) 91 Room Air 11/11/16 21:29 58 106/66 (79) 11/11/16 20:15 36.8 61 16 142/83 Room Air 11/11/16 20:15 36.8 61 16 142/83 (102) 95 Room Air 11/11/16 19:24 58 18 129/75 98 Room Air 11/11/16 17:37 69 16 137/73 97 Room Air 11/11/16 15:34 60 18 117/64 94 Room Air Lab Results: Results Past 24 Hours Test 11/11/16 15:15 11/12/16 00:02 11/12/16 05:49 11/12/16 07:28 Range/Units White Blood Count 4.58 3.18 4.8-10.8 K/uL Red Blood Count 5.36 4.94 4.7-6.1 M/uL Hemoglobin 15.8 14.5 14.0-18.0 g/dL Hematocrit 48.9 45.5 42-52 % Mean Corpuscular Volume 91.2 92.1 80-100 fL Mean Corpuscular Hemoglobin 29.5 29.4 25-34 pg Mean Corpuscular Hemoglobin Concent 32.3 31.9 32-36 g/dl Platelet Count 236 217 130-400 K/uL Mean Platelet Volume 10.2 10.3 7.4-10.4 fL Neutrophils (%) (Auto) 45.2 40.6 % Lymphocytes (%) (Auto) 35.6 38.1 % Monocytes (%) (Auto) 17.7 19.5 % Eosinophils (%) (Auto) 0.4 0.6 % Basophils (%) (Auto) 0.9 0.9 % Neutrophils # (Auto) 2.07 1.29 1.4-6.5 K/uL Lymphocytes # (Auto) 1.63 1.21 1.2-3.4 K/uL Monocytes # (Auto) 0.81 0.62 0.11-0.59 K/uL Eosinophils # (Auto) 0.02 0.02 0-0.5 K/uL Basophils # (Auto) 0.04 0.03 0-0.2 K/uL RDW Standard Deviation 52.6 52.8 36.4-46.3 fL RDW Coefficient of Variation 15.7 15.6 11.5-14.5 % Immature Granulocyte % (Auto) 0.2 0.3 % Immature Granulocyte # (Auto) 0.01 0.01 0.00-0.02 K/uL Sodium Level 139 142 136-145 mmol/L Potassium Level 4.6 4.0 3.5-5.1 mmol/L Chloride Level 107 109 98-107 mmol/L Carbon Dioxide Level 26 27 21-32 mmol/L Anion Gap 6.0 6.0 3-11 mmol/L Blood Urea Nitrogen 20 14 7-18 mg/dl Creatinine 1.10 0.95 0.60-1.40 mg/dl Est Creatinine Clear Calc Drug Dose 70.1 81.2 ml/min Estimated GFR () 78.4 93.6 Estimated GFR (Non- 67.7 80.8 BUN/Creatinine Ratio 18.3 14.8 10-20 Random Glucose 93 131 70-99 mg/dl Calcium Level 9.1 8.4 8.5-10.1 mg/dl Total Bilirubin 1.2 1.2 0.2-1 mg/dl Aspartate Amino Transf (AST/SGOT) 16 14 15-37 U/L Alanine Aminotransferase (ALT/SGPT) 26 21 12-78 U/L Alkaline Phosphatase 78 65 45-117 U/L Total Protein 7.8 6.6 6.4-8.2 gm/dl Albumin 4.0 3.3 3.4-5.0 gm/dl Globulin 3.8 2.5-4.0 gm/dl Albumin/Globulin Ratio 1.1 0.9-2 Lipase 2101 278 73-393 U/L Bedside Glucose 87 137 70-99 mg/dl Estimated Average Glucose 123 mg/dl Hemoglobin A1c 5.9 4.5-5.6 % Magnesium Level 2.0 1.8-2.4 mg/dl Direct Bilirubin 0.3 0-0.2 mg/dl Hepatitis C Antibody Screen NEG NEG
[2016-11-12 15:28] VITALS: BP 135/78; PULSE 61; TEMP 36.3; O2SAT 97
[2016-11-12 20:18] VITALS: BP 156/75; PULSE 61
[2016-11-12] MEDS ORDERED: NURSING VERBAL MED ORDER ONE (23:00)
[2016-11-12 23:05] VITALS: BP 126/76; PULSE 59; TEMP 36.4; O2SAT 96
[2016-11-13] MEDS: D5W AND LACTATED RINGERS 1,000 ML IV SCH ×4 (01:10→16:38)
[2016-11-13 07:10] VITALS: BP 150/79; PULSE 54; TEMP 36.4; O2SAT 96
[2016-11-13 07:26] LABS: BASO % 1.4 %; BASO ABS # 0.04 K/uL (0-0.2); COMPLETE YES; HEMATOCRIT 43.2 % (42-52); LYMPH % 38.4 %; LYMPH ABS # 1.11 K/uL (1.2-3.4); MEAN CELL VOLUME 91.7 fL (80-100); MEAN CORPUSCULAR HEMOGLOBIN 30.1 pg (25-34); MEAN CORPUSCULAR HGB CONC 32.9 g/dl (32-36); MEAN PLATELET VOLUME 10.9 fL (7.4-10.4); MONO % 20.1 %; NEUT % 39.1 %; PLATELET COUNT 220 K/uL (130-400); RED BLOOD COUNT 4.71 M/uL (4.7-6.1); WHITE BLOOD COUNT 2.89 K/uL (4.8-10.8)
[2016-11-13 08:10] LABS: BUN/CREATININE RATIO 9.6 (10-20); CALCIUM 8.6 mg/dl (8.5-10.1); CREATININE 0.81 mg/dl (0.60-1.40); MAGNESIUM 1.8 mg/dl (1.8-2.4); POTASSIUM 3.8 mmol/L (3.5-5.1)
[2016-11-13] MEDS: INSULIN ASPART 100 UNITS/ML 3 ML PEN SC SCH ×2 (08:59→11:06)
[2016-11-13] MEDS: CARVEDILOL 3.125 MG TAB PO SCH (09:00)
[2016-11-13] MEDS: VALSARTAN 80 MG TAB PO SCH (09:00)
[2016-11-13] MEDS: NICOTINE 21 MG/24 HR TDSY TD SCH (09:00)
[2016-11-13] MEDS: PANTOprazole INJ 40 MG in SYRINGE 0 ML IV SCH (10:57)
--- NOTE | 2016-11-13 12:23 | Gastroenterology Progress Note ---
Progress Note Date of Service: Nov 13, 2016 Subjective Pt evaluation today including: conversation w/ patient, physical exam, chart review, lab review, review of studies, review of inpatient medication list Mr. Craig is a 71 yr old male with acute pancreatitis, likely mild chronic from smoking. Pain is nearly resolved. He is taking clear liqs po well w/o nausea or increased discomfort. Review of Systems Constitutional: No fever Cardiac: No chest pain Abdomen: + pain (minimal), No nausea, No vomiting, No diarrhea, No constipation , No GI bleeding Male : No dysuria Neuro: No memory loss Psych: No depression symptoms Heme: No abnormal bleeding/bruising Endo: No fatigue Skin: No rash, No jaundice Medications Current Inpatient Medications Medications (Trade) Dose Ordered Sig/Nadia Route Start Time Stop Time Status Last Admin Dose Admin Ioversol (Optiray 320) 125 ml UD PRN IV 11/11/16 14:30 11/15/16 14:29 Acetaminophen (Tylenol Tab) 650 mg Q4H PRN PO 11/11/16 19:15 12/11/16 19:14 Al Hydrox/Mg Hydrox/Simethicone (Maalox Max Susp) 15 ml Q4H PRN PO 11/11/16 19:15 12/11/16 19:14 Ondansetron HCl (Zofran Inj) 4 mg Q6H PRN IV 11/11/16 19:15 12/11/16 19:14 Pantoprazole Sodium 40 mg/ Syringe 10 ml @ 5 mls/min DAILY@11 IV 11/12/16 11:00 12/12/16 10:59 11/13/16 10:57 5 MLS/MIN Morphine Sulfate (MoRPHine SULFATE INJ) 3 mg Q3HWA PRN IV 11/11/16 19:15 11/25/16 19:14 11/12/16 15:07 3 MG Carvedilol (Coreg Tab) 3.125 mg BID PO 11/11/16 21:00 12/11/16 20:59 11/12/16 20:19 3.125 MG Valsartan (Diovan Tab) 40 mg DAILY PO 11/12/16 09:00 12/12/16 08:59 11/13/16 09:00 40 MG Nicotine (Nicoderm Cq 21MG Patch) 1 patch QAM TD 11/12/16 09:00 12/12/16 08:59 11/13/16 09:00 1 PATCH Miscellaneous (Remove Nicoderm Patch) 1 ea HS N/A 11/11/16 21:00 12/11/16 20:59 11/12/16 20:20 1 EA Glucose (Glucose 40% Gel) 15-30 GRAMS 15 GRAMS... UD PRN PO 11/11/16 19:45 12/11/16 19:44 11/12/16 22:02 15 GM Glucose (Glucose Chew Tab) 4-8 Tablets 4 Tabl... UD PRN PO 11/11/16 19:45 12/11/16 19:44 Dextrose (Dextrose 50% 50ML Syringe) 25-50ML OF 50% DW IV FOR... UD PRN IV 11/11/16 19:45 12/11/16 19:44 Glucagon (Glucagon Inj) 1 mg UD PRN SQ 11/11/16 19:45 12/11/16 19:44 Dextrose/Lactated Ringer's 1,000 ml @ 200 mls/hr Q5H IV 11/12/16 00:30 12/12/16 00:29 11/13/16 10:57 200 MLS/HR Insulin Aspart (novoLOG ASPART) SLIDING SCALE G... ACHS SC 11/13/16 08:00 12/13/16 07:59 Objective Vital Signs Date Time Temp Pulse Resp B/P (MAP) Pulse Ox O2 Delivery O2 Flow Rate FiO2 11/13/16 08:25 Room Air 11/13/16 07:10 36.4 54 17 150/79 (102) 96 Room Air 11/12/16 23:15 Room Air 11/12/16 23:05 36.4 59 16 126/76 (93) 96 Room Air 11/12/16 20:18 61 156/75 (102) 11/12/16 15:28 36.3 61 18 135/78 (97) 97 Room Air 11/12/16 15:20 Room Air Physical Exam General Appearance: no apparent distress Neck: no JVD Respiratory/Chest: lungs clear Cardiovascular: regular rate, rhythm, no JVD, no murmur Abdomen: soft, + tenderness (minimal epigastric) Extremities: normal inspection Neurologic/Psych: alert, normal mood/affect, oriented x 3 Skin: no jaundice Laboratory Results Last 24 Hours Test 11/12/16 18:06 11/12/16 21:50 11/12/16 23:10 11/13/16 06:27 Bedside Glucose 181 mg/dl 68 mg/dl 176 mg/dl White Blood Count 2.89 K/uL Red Blood Count 4.71 M/uL Hemoglobin 14.2 g/dL Hematocrit 43.2 % Mean Corpuscular Volume 91.7 fL Mean Corpuscular Hemoglobin 30.1 pg Mean Corpuscular Hemoglobin Concent 32.9 g/dl Platelet Count 220 K/uL Mean Platelet Volume 10.9 fL Neutrophils (%) (Auto) 39.1 % Lymphocytes (%) (Auto) 38.4 % Monocytes (%) (Auto) 20.1 % Eosinophils (%) (Auto) 1.0 % Basophils (%) (Auto) 1.4 % Neutrophils # (Auto) 1.13 K/uL Lymphocytes # (Auto) 1.11 K/uL Monocytes # (Auto) 0.58 K/uL Eosinophils # (Auto) 0.03 K/uL Basophils # (Auto) 0.04 K/uL RDW Standard Deviation 51.9 fL RDW Coefficient of Variation 15.4 % Immature Granulocyte % (Auto) 0.0 % Immature Granulocyte # (Auto) 0.00 K/uL Sodium Level 146 mmol/L Potassium Level 3.8 mmol/L Chloride Level 114 mmol/L Carbon Dioxide Level 25 mmol/L Anion Gap 7.0 mmol/L Blood Urea Nitrogen 8 mg/dl Creatinine 0.81 mg/dl Est Creatinine Clear Calc Drug Dose 95.3 ml/min Estimated GFR () 104.4 Estimated GFR (Non- 90.0 BUN/Creatinine Ratio 9.6 Random Glucose 133 mg/dl Calcium Level 8.6 mg/dl Magnesium Level 1.8 mg/dl Test 11/13/16 07:54 Bedside Glucose 127 mg/dl Assessment and Plan Mr. Craig is a 71 yr old with acute pancreatitis, resolving. He likely has a component of chronic pancreatitis from a long hx of smoking. Plan: 1. Advance diet, stay with low fat. 2. EUS as OP in 6-8 weeks. I saw and evaluated the patient. The patient notes that his symptoms have resolved completely. He will be scheduled for an outpatient endoscopic ultrasound in 6-8 weeks. Please advance the patient's diet as tolerated and call with any questions. GI to sign off.
--- NOTE | 2016-11-13 13:03 | Progress Note ---
Internal Med Progress Note Date of Service: Nov 13, 2016. Provider Documentation: SUBJECTIVE: The patient was seen and examined Abdominal pain is much better today Denies any Nausea and or vomiting Denies any more pain Tolerating clears-will advance OBJECTIVE: Vital Signs-as noted below Exam: General-No distress at rest Eyes-normal ENT-normal Neck-supple Lungs-Clear to auscultate bilaterally Heart-Regular,no murmur appreciated Abdomen-Benign,no masses,bowel sound present No tenderness in epigastrium Extremities-No Edema [id number] Lab data as noted below. ASSESSMENT & PLAN: ACUTE RECURRENT PANCREATITIS Acute on chronic abdominal pain-typical for Pancreatitis. Lipase elevated ~2000 CT-unremarkable IVF,NPO and symptomatic medications GI consulted-appreciate Input MRCP for further evaluation-negative for any dilatation of the CBD/stone Clinically much better Advance diet as tolerated -home this afternoon Diabetes Type II Metformin may be complicating abdominal pain Hold metformin-and will discontinue on discharge We will place him on insulin sliding scale. Follow Hb A1c levels.-5.9 Has had Hypoglycemia early this morning-ISS discontinued History of hypertension. Continue Coreg and Diovan. Monitor the blood pressure. Hyperlipidemia. Plan to hold statin for now. Gastrointestinal reflux disease. We will place him on IV Protonix for now. DVT prophylaxis, SCDs and THOMPSON. History of tobacco abuse. We will place him on nicotine patch. Code Status-Full code Disposition: Awaited Vital Signs: Date Time Temp Pulse Resp B/P (MAP) Pulse Ox O2 Delivery O2 Flow Rate FiO2 11/13/16 08:25 Room Air 11/13/16 07:10 36.4 54 17 150/79 (102) 96 Room Air 11/12/16 23:15 Room Air 11/12/16 23:05 36.4 59 16 126/76 (93) 96 Room Air 11/12/16 20:18 61 156/75 (102) 11/12/16 15:28 36.3 61 18 135/78 (97) 97 Room Air 11/12/16 15:20 Room Air Lab Results: Results Past 24 Hours Test 11/12/16 18:06 11/12/16 21:50 11/12/16 23:10 11/13/16 06:27 Range/Units Bedside Glucose 181 68 176 70-99 mg/dl White Blood Count 2.89 4.8-10.8 K/uL Red Blood Count 4.71 4.7-6.1 M/uL Hemoglobin 14.2 14.0-18.0 g/dL Hematocrit 43.2 42-52 % Mean Corpuscular Volume 91.7 80-100 fL Mean Corpuscular Hemoglobin 30.1 25-34 pg Mean Corpuscular Hemoglobin Concent 32.9 32-36 g/dl Platelet Count 220 130-400 K/uL Mean Platelet Volume 10.9 7.4-10.4 fL Neutrophils (%) (Auto) 39.1 % Lymphocytes (%) (Auto) 38.4 % Monocytes (%) (Auto) 20.1 % Eosinophils (%) (Auto) 1.0 % Basophils (%) (Auto) 1.4 % Neutrophils # (Auto) 1.13 1.4-6.5 K/uL Lymphocytes # (Auto) 1.11 1.2-3.4 K/uL Monocytes # (Auto) 0.58 0.11-0.59 K/uL Eosinophils # (Auto) 0.03 0-0.5 K/uL Basophils # (Auto) 0.04 0-0.2 K/uL RDW Standard Deviation 51.9 36.4-46.3 fL RDW Coefficient of Variation 15.4 11.5-14.5 % Immature Granulocyte % (Auto) 0.0 % Immature Granulocyte # (Auto) 0.00 0.00-0.02 K/uL Sodium Level 146 136-145 mmol/L Potassium Level 3.8 3.5-5.1 mmol/L Chloride Level 114 98-107 mmol/L Carbon Dioxide Level 25 21-32 mmol/L Anion Gap 7.0 3-11 mmol/L Blood Urea Nitrogen 8 7-18 mg/dl Creatinine 0.81 0.60-1.40 mg/dl Est Creatinine Clear Calc Drug Dose 95.3 ml/min Estimated GFR () 104.4 Estimated GFR (Non- 90.0 BUN/Creatinine Ratio 9.6 10-20 Random Glucose 133 70-99 mg/dl Calcium Level 8.6 8.5-10.1 mg/dl Magnesium Level 1.8 1.8-2.4 mg/dl Test 11/13/16 07:54 11/13/16 11:48 Range/Units Bedside Glucose 127 122 70-99 mg/dl
[2016-11-13 14:17] VITALS: BP 150/79; PULSE 54; TEMP 36.4; O2SAT 96
[2016-11-13 15:15] VITALS: BP 145/65; PULSE 56; TEMP 36.8; O2SAT 96
[2016-11-13] MEDS ORDERED: NICO21DI4 TD (17:08)
--- NOTE | 2016-11-13 17:12 | Discharge Instructions ---
Discharge Instructions Date of Service Nov 13, 2016. Admission Reason for Admission: Pancreatitis Discharge Discharge Diagnosis / Problem: Acute Pancreatitis-resolved Discharge Goals Goal(s): Prevent Disease Progression Activity Recommendations Activity Limitations: resume your previous activity . Instructions / Follow-Up Instructions / Follow-Up Dr Ray on 11/20/16 at 9:25AM.Will need to start oral Antidiabetic medication - Metformin stopped.GI will call for Endoscopy. Current Hospital Diet Patient's current hospital diet: Diabetes Type 2 Diet Discharge Diet Recommended Diet: Diabetes Type 2 Diet, Low Fiber Diet Pending Studies Studies pending at discharge: no Laboratory Results Hemoglobin A1c Test 11/12/16 07:28 Range/Units Estimated Average Glucose 123 mg/dl Hemoglobin A1c 5.9 H 4.5-5.6 % Medical Emergencies . Who to Call and When: Medical Emergencies: If at any time you feel your situation is an emergency, please call 911 immediately. . Non-Emergent Contact Non-Emergency issues call your: Primary Care Provider . Past History Medical & Surgical History: (1) Pancreatitis (2) Chronic pancreatitis . "Provider Documentation" section prepared by Anne-Marie Brunson. . VTE Core Measure Inpt VTE Proph given/why not?: SCD's
--- NOTE | 2016-11-14 08:23 | Discharge Summary ---
Discharge Summary Date of Service Nov 14, 2016. Discharge Summary Admission Date: Nov 11, 2016 at 19:15 Discharge Date: Nov 13, 2016 Discharge Disposition: Home Principal Diagnosis: Acute Pancreatitis-resolved Secondary Diagnoses/Problems: Please see H&P and Hospital Progress note Consultations: GI Medication Reconciliation New Medications: Nicotine (Nicoderm Cq) 21 Mg/24 Hr Dis 1 PATCH TD QAM for 30 Days, #30 Continued Medications: Aluminum/Magnesium/Simeth (Maalox Max Susp) Susp 1 DOSE PO PRN Aspirin (Aspirin Ec) 81 Mg Tab 81 MG PO BID Carvedilol (Coreg) 3.125 Mg Tab 3.125 MG PO BID, TAB Fish Oil (Forgan-3) 1 Ea Cap 1 CAP PO DAILY, CAP Multiple Vitamins W/ Minerals (Mens Multi Vitamin & Mine) 1 Tab Tab 2 TAB PO QPM Omeprazole (Prilosec) 40 Mg Cap 40 MG PO DAILY, CAP Simvastatin (Simvastatin) 40 Mg Tab 40 MG PO QPM Valsartan (Diovan) 40 Mg Tab 40 MG PO DAILY, TAB [Vicks Inhaler] () 1 DOSE INH PRN Discontinued Medications: Metformin Hcl (Glucophage) 1,000 Mg Tab 1000 MG PO BID, TAB Admission Information HPI (per Admitting provider): DATE OF ADMISSION: 11/11/2016 CHIEF COMPLAINT: Abdominal pain. HISTORY OF PRESENT ILLNESS: A 71-year-old male with past medical history significant for type 2 diabetes, hyperlipidemia, GERD, generalized osteoarthritis, diverticulosis of colon, chronic tobacco abuse, hypertension, proteinuria, who presents with severe abdominal pain. The patient says he has ongoing abdominal pain for about a year on and off. Whenever he eats he gets severe abdominal pain, and is nauseous. In April of 2016, seen by a surgeon, and was thought secondary to gallbladder disease, as he had gallstones and he was status post laparoscopic cholecystectomy.But Patient says he still has been experiencing significant abdominal pain. He lost about 10-15 pounds and recently saw his surgeon and was planned to get CAT scan, but his pain got worse and he came to the ER. Currently, he says the pain has improved. Currently, no nausea, no fever, no chills, no chest pain, no shortness of breath, has some cough. No headaches, no blurred vision, no dizziness, has diarrhea of 1-day duration, but seems comfortable now, hemodynamically stable. ALLERGIES: No known drug allergies. PAST MEDICAL HISTORY: As mentioned above. PAST SURGICAL HISTORY: Left heart catheterization, laparoscopic cholecystectomy, Mohs surgery, tonsillar adenoidectomy. MEDICATIONS: The patient is on metformin 1000 mg p.o. b.i.d., lisinopril 10 mg p.o. daily, omeprazole 40 mg p.o. daily, simvastatin 40 mg p.o. at bedtime, Maalox 15 mL every 6 hours p.r.n., Senokot-S 2 tablets p.r.n. for constipation, aspirin 81 mg p.o. b.i.d., Coreg 3.125 mg p.o. b.i.d., multivitamins with minerals 1 tablet daily, fish oil 200 mg p.o. daily, Diovan 40 mg p.o. daily. FAMILY HISTORY: Significant for father has diabetes, asthma, and pacemaker. His mother has renal failure and diabetes, at age of 74. Brother has asthma, degenerative joint disease. Another brother has mental illnesses and failure to thrive. Another brother has CHF. SOCIAL HISTORY: . Currently smokes to about 1.5-2 packs a day for several years. No alcohol use. No drug use. REVIEW OF SYMPTOMS: As per HPI. Rest of review of symptoms negative. PHYSICAL EXAMINATION: GENERAL: The patient is of moderate build, not in distress. VITAL SIGNS: Temperature 36.5, pulse 69, respiratory rate 16, blood pressure 137/73, oxygen 97% on room air. HEENT: No pallor, no icterus. Pupils are equal, round to light. NECK: No JVD, no neck masses, no carotid bruits. CARDIOVASCULAR: S1, S2 heard, regular rate and rhythm, no murmur, no gallop. RESPIRATORY SYSTEM: Clear to auscultation bilaterally. No accessory muscle use. No wheezing, no crackles. ABDOMEN: Soft, bowel sounds present. Mild periumbilical tenderness, no guarding, or rigidity. No distention. CENTRAL NERVOUS SYSTEM: Cranial nerves II-XII are grossly intact. Nonfocal. EXTREMITIES: No edema, no erythema. LABORATORY DATA: WBC 4.5, hemoglobin 15.8, hematocrit 48.9, platelets 236. Sodium 139, potassium 4.6, chloride 107, bicarb is 26, BUN 20, creatinine 1.1, serum glucose 93, total calcium 9.1, total bilirubin 1.2, AST 16, ALT 26, alkaline phosphatase 78, lipase 2100. IMAGING DATA: Chest x-ray, negative chest. CT scan of the abdomen and pelvis, no acute process of the abdomen and pelvis, prior cholecystectomy, stable bibasilar pulmonary nodularity. ASSESSMENT AND PLAN: This is a 71-year-old male who presents with acute on chronic abdominal pain. 1. Acute on chronic abdominal pain. Possible pancreatitis, history of cholecystectomy in April 2016, but lipase is elevated at 2000, but the CAT scan of the pelvis with contrast, no acute process seen. We will place the patient n.p.o., aggressive IV fluids settling at LR 200 mL an hour, IV antiemetics, IV pain medications. Monitor on medical floor. Consult gastroenterology and consult surgery as patient is known to surgery. 2. History of diabetes. Hold metformin. We will place him on insulin sliding scale. Follow Hb A1c levels. 3. History of hypertension. Continue Coreg and Diovan. Monitor the blood pressure. 4. History of hyperlipidemia. Plan to hold statin for now. 5. Gastrointestinal reflux disease. We will place him on IV Protonix for now. 6. DVT prophylaxis, SCDs and THOPMSON. 7. History of tobacco abuse. We will place him on nicotine patch. 8. Disposition: Admit to medical floor. Level 1 full code. Hospital Course ACUTE RECURRENT PANCREATITIS Acute on chronic abdominal pain-typical for Pancreatitis. Lipase elevated ~1999 CT-unremarkable IVF,NPO and symptomatic medications GI consulted-appreciate Input MRCP for further evaluation-negative for any dilatation of the CBD/stone Clinically much better Advance diet as tolerated -home this afternoon Diabetes Type II Metformin may be complicating abdominal pain Hold metformin-and will discontinue on discharge We will place him on insulin sliding scale. Follow Hb A1c levels.-5.9 Has had Hypoglycemia early this morning-ISS discontinued History of hypertension. Continue Coreg and Diovan. Monitor the blood pressure. Hyperlipidemia. Plan to hold statin for now. Gastrointestinal reflux disease. We will place him on IV Protonix for now. DVT prophylaxis, SCDs and THOMPSON. History of tobacco abuse. We will place him on nicotine patch. Code Status-Full code Disposition: Awaited Total time spent on discharge = 35 minutes This includes examination of the patient, discharge planning, medication reconciliation, and communication with other providers. Discharge Instructions Date of Service Nov 13, 2016. Admission Reason for Admission: Pancreatitis Discharge Discharge Diagnosis / Problem: Acute Pancreatitis-resolved Discharge Goals Goal(s): Prevent Disease Progression Activity Recommendations Activity Limitations: resume your previous activity . Instructions / Follow-Up Instructions / Follow-Up Dr Ray on 11/20/16 at 9:25AM.Will need to start oral Antidiabetic medication - Metformin stopped.GI will call for Endoscopy. Current Hospital Diet Patient's current hospital diet: Diabetes Type 2 Diet Discharge Diet Recommended Diet: Diabetes Type 2 Diet, Low Fiber Diet Pending Studies Studies pending at discharge: no Laboratory Results Hemoglobin A1c Test 11/12/16 07:28 Range/Units Estimated Average Glucose 123 mg/dl Hemoglobin A1c 5.9 H 4.5-5.6 % Medical Emergencies . Who to Call and When: Medical Emergencies: If at any time you feel your situation is an emergency, please call 911 immediately. . Non-Emergent Contact Non-Emergency issues call your: Primary Care Provider . Past History Medical & Surgical History: (1) Pancreatitis (2) Chronic pancreatitis . "Provider Documentation" section prepared by Anne-Marie Brunson. . VTE Core Measure Inpt VTE Proph given/why not?: SCD's <Electronically signed by Anne-Marie Brunson M.D.> Signed: 11/13/16 5307 Additional Copies To Eddie Ray D.O.
[2016-11-14] MEDS ORDERED: PANTOprazole SOD 40 MG TAB PO SCH (09:00)
== END 2016-11-13 18:15 | disposition home or self-care (01) | DRG 440 ==
LOC: C.EDB 13:40 → C.MSW 19:15 → ENRESERV 19:26
PROVIDERS: ADMIT Internal Medicine; ATTEND Internal Medicine
DX: K85.90 Acute pancreatitis without necrosis or infection, unspecified (principal); K86.1 Other chronic pancreatitis; E11.9 Type 2 diabetes mellitus without complications; E78.5 Hyperlipidemia, unspecified; M19.90 Unspecified osteoarthritis, unspecified site; K57.30 Diverticulosis of large intestine without perforation or abscess without bleeding; K21.9 Gastro-esophageal reflux disease without esophagitis; F17.200 Nicotine dependence, unspecified, uncomplicated; Z85.828 Personal history of other malignant neoplasm of skin